=== PATIENT | female | born 1965 | race Caucasian/White ===

== ENCOUNTER 2017-09-22 17:57 | Emergency (ER) | payer OTHER ==
--- NOTE | 2017-09-22 18:50 | EDM.PDOC ---
ED HPI GENERAL MEDICAL PROBLEM - General Chief Complaint: Fever Stated Complaint: PNEUMONIA Time Seen by Provider: 09/22/17 20:00 Source of Information: Reports: Patient History Limitations: Reports: No Limitations - History of Present Illness INITIAL COMMENTS - FREE TEXT/NARRATIVE: Treated @ [facility] today, diagnosed with Pneumonia. CBC showed WBC ct 14k , Temp 104, sent to [facility] for Blood Culture. Patient has had a slight cough and fever for 3 days. Also developed back pain 2 days ago radiating to chest, this has resolved. Denies SOB, recent travel or tick bite. Duration: Day(s): (3) Severity: Moderate Associated Symptoms: Reports: Fever/Chills back Pain Score (Numeric/FACES): 5 - Related Data Allergies Allergy/AdvReac Type Severity Reaction Status Date / Time No Known Allergies Allergy Verified 09/22/17 18:39 Home Meds: Home Meds Levofloxacin [Levaquin] 750 mg PO DAILY 9 Days #9 tab 09/22/17 [Rx] Naproxen Sodium 440 mg PO BID 09/22/17 [History] Past Medical History - Past Health History Medical/Surgical History: Denies Medical/Surgical History Social & Family History - Tobacco Use Smoking Status *Q: Current Every Day Smoker Tobacco Use Within Last Twelve Months: Cigarettes ED ROS GENERAL - Review of Systems Review Of Systems: See Below Constitutional: Reports: Fever HEENT: Reports: No Symptoms Respiratory: Reports: Cough. Denies: Sputum Cardiovascular: Reports: Chest Pain (resolved) Endocrine: Reports: No Symptoms GI/Abdominal: Reports: No Symptoms : Reports: No Symptoms Musculoskeletal: Reports: Back Pain (resolved) Skin: Reports: No Symptoms Neurological: Reports: No Symptoms Psychiatric: Reports: No Symptoms Hematologic/Lymphatic: Reports: No Symptoms Immunologic: Reports: No Symptoms ED EXAM, GENERAL - Physical Exam Exam: See Below Exam Limited By: No Limitations General Appearance: Alert, WD/WN, No Apparent Distress Ears: Normal External Exam Nose: Normal Inspection Throat/Mouth: Normal Inspection Head: Atraumatic Neck: Supple Respiratory/Chest: No Respiratory Distress, Decreased Breath Sounds. No: Crackles, Rales, Wheezing Cardiovascular: Regular Rate, Rhythm, No Gallop, No JVD, No Murmur, No Rub GI/Abdominal: No Distention Extremities: Normal Inspection Neurological: Alert, Oriented Psychiatric: Normal Affect, Normal Mood Skin Exam: Warm, Dry, Intact. No: Rash Course - Vital Signs Last Recorded V/S: Last Vital Signs Temp 36.8 C 09/22/17 18:00 Pulse 71 09/22/17 18:00 Resp 16 09/22/17 18:00 BP 109/59 L 09/22/17 18:00 Pulse Ox 96 09/22/17 18:00 - Orders/Labs/Meds Orders: Active Orders 24 hr Category Date Time Status Chest w Cont [CT] Stat Exams 09/22/17 19:28 Taken CULTURE BLOOD [BC] Urgent Lab 09/22/17 18:55 Received CULTURE BLOOD [BC] Urgent Lab 09/22/17 19:00 Received Levofloxacin [Levaquin] Med 09/22/17 21:05 Once 750 mg PO ONETIME ONE Sodium Chloride 0.9% [Saline Flush] Med 09/22/17 19:29 Active 10 ml FLUSH ASDIRECTED PRN Blood Culture x2 Reflex Set [OM.PC] Urgent Oth 09/22/17 18:45 Ordered Saline Lock Insert [OM.PC] Routine Oth 09/22/17 19:29 Ordered Medication Orders Sodium Chloride (Saline Flush) 10 ml FLUSH ASDIRECTED PRN PRN Reason: Keep Vein Open Labs: Laboratory Tests 09/22/17 09/22/17 09/22/17 Range/Units 18:55 18:55 18:55 D-Dimer, Quantitative 1.83 H (0.0-0.59) mg/LFEU Lactic Acid 1.0 (0.4-2.2) mmol/L Troponin I < 0.017 L (<0.017-0.056) ng/mL Meds: Medications Generic Name Dose Route Start Last Admin Trade Name Freq PRN Reason Stop Dose Admin Sodium Chloride 10 ml 09/22/17 19:29 Saline Flush FLUSH ASDIRECTED PRN Keep Vein Open Discontinued Medications Generic Name Dose Route Start Last Admin Trade Name Freq PRN Reason Stop Dose Admin Iopamidol 100 ml 09/22/17 20:00 09/22/17 20:12 Isovue-370 (76%) IV 09/22/17 20:01 85 ml ONETIME ONE Administration - Radiology Interpretation Free Text/Narrative:: CT Chest w/ IV contrast: No PE, multifocal pneumonia present (per Dr. Mcadams) CT Results Date: 09/22/17 Departure - Departure Time of Disposition: 21:06 Disposition: Home, Self-Care 01 Condition: Good Clinical Impression: Multifocal pneumonia - Discharge Information *PRESCRIPTION DRUG MONITORING PROGRAM REVIEWED*: Not Applicable *COPY OF PRESCRIPTION DRUG MONITORING REPORT IN PATIENT KEVIN: Not Applicable Prescriptions: Levofloxacin [Levaquin] 750 mg PO DAILY 9 Days #9 tab Instructions: Community-Acquired Pneumonia, Adult Referrals: PCP,None [Primary Care Provider] - Forms: ED Department Discharge Additional Instructions: Follow up with your doctor in 2 days. Return to the ER if symptoms worsen. - My Orders Last 24 Hours: My Active Orders 09/22/17 18:45 Blood Culture x2 Reflex Set [OM.PC] Urgent 09/22/17 18:55 CULTURE BLOOD [BC] Urgent 09/22/17 19:00 CULTURE BLOOD [BC] Urgent 09/22/17 19:28 Chest w Cont [CT] Stat 09/22/17 19:29 Sodium Chloride 0.9% [Saline Flush] 10 ml FLUSH ASDIRECTED PRN Saline Lock Insert [OM.PC] Routine 09/22/17 21:05 Levofloxacin [Levaquin] 750 mg PO ONETIME ONE - Assessment/Plan Last 24 Hours: My Active Orders 09/22/17 18:45 Blood Culture x2 Reflex Set [OM.PC] Urgent 09/22/17 18:55 CULTURE BLOOD [BC] Urgent 09/22/17 19:00 CULTURE BLOOD [BC] Urgent 09/22/17 19:28 Chest w Cont [CT] Stat 09/22/17 19:29 Sodium Chloride 0.9% [Saline Flush] 10 ml FLUSH ASDIRECTED PRN Saline Lock Insert [OM.PC] Routine 09/22/17 21:05 Levofloxacin [Levaquin] 750 mg PO ONETIME ONE
[2017-09-22] MEDS ORDERED: Sodium Chloride 0.9% 10 ML Syringe FLUSH PRN (19:29)
[2017-09-22] MEDS ORDERED: Iopamidol 755 Mg/ML 100 ML Bottle IV ONE (20:00)
[2017-09-22] MEDS ORDERED: Levofloxacin 750 MG Tab PO ONE (21:05)
--- NOTE | 2017-09-23 08:29 | CT ---
INDICATION: Chest pain, question pulmonary emboli. COMPUTERIZED TOMOGRAPHY ANGIOGRAPHY OF THE CHEST WITH CONTRAST: Spiral 1.25 mm axial sections were obtained through the chest with sagittal and coronal reconstructions, utilizing 85 mL Isovue 370 at 3 mL/second. Examination was obtained 09/22/2017 - no comparisons were available. Total exam DLP = 413.16 mGy-cm. Extensive infiltration is noted in the left upper lobe, extending into the left hilum with hilar lymphadenopathy and mediastinal lymphadenopathy. Findings likely are on the basis of pneumonia with localized pleuritis and no significant pleural effusion seen. A fairly significant degree of infiltration is also noted in the left lower lobe scattered about the middle portion of the left lower lobe laterally and posteriorly. Infiltration is noted in the left upper lobe anteromedially. Multiple calcified granulomas are scattered about the lungs. Central lobular emphysema is noted. No significant pleural effusion is seen. Much of the infiltration present is subpleural, extending into the lungs bilaterally but is by far more severe in the left upper and lower lobes. No evidence of pulmonary emboli could be identified. IMPRESSION: Extensive pneumonia is suggested with mediastinal and hilar lymphadenopathy on the left and a less prominent degree of pneumonia seen on the right and limited on the right to the upper lobe. On the left, upper and lower lobe infiltration is present. No evidence of pulmonary emboli was seen. Report was called to Dr. Andersen at 2047 hours on 09/22/2017. [facility]
== END 2017-09-22 21:32 | disposition home or self-care (01) ==
LOC: FB.ED 17:57
DX: J18.9 Pneumonia, unspecified organism (principal); F17.210 Nicotine dependence, cigarettes, uncomplicated; Z79.899 Other long term (current) drug therapy
CPT/HCPCS: 36415; 71260; 83605; 84484; 85379; 86666; 87040; 99284; A9270; J7050; Q9967; 87077

== ENCOUNTER 2021-01-01 12:50 | Emergency (ER) | payer OTHER ==
[2021-01-01] MEDS ORDERED: Lidocaine 1% with EPINEPHrine 1:100,000 10 ML MDV INFILT ONE (12:51)
--- NOTE | 2021-01-01 13:28 | EDM.PDOC ---
ED HPI GENERAL MEDICAL PROBLEM - General Chief Complaint: Laceration Stated Complaint: L THUMB LACERATION Time Seen by Provider: 01/01/21 12:55 Source of Information: Reports: Patient History Limitations: Reports: No Limitations - History of Present Illness INITIAL COMMENTS - FREE TEXT/NARRATIVE: Patient presented to the ED because of a laceration at the base of her left thumb. She was taking a shower and a broken piece of tile cut her left thumb. She sustained a 4 cm laceration, she is able to extend and flexe her thumb w/o any difficulty. Left Finger-Thumb Pain Score (Numeric/FACES): 8 - Related Data Allergies Allergy/AdvReac Type Severity Reaction Status Date / Time Penicillins Allergy Airway Verified 03/05/18 16:07 Tightness Home Meds: Home Meds NK [No Known Home Meds] 01/07/18 [History] Past Medical History - Past Health History Medical/Surgical History: Denies Medical/Surgical History Social & Family History - Family History Family Medical History: No Pertinent Family History - Caffeine Use Caffeine Use: Reports: None ED ROS GENERAL - Review of Systems Review Of Systems: See Below Constitutional: Reports: No Symptoms HEENT: Reports: No Symptoms Respiratory: Reports: No Symptoms Cardiovascular: Reports: No Symptoms Endocrine: Reports: No Symptoms GI/Abdominal: Reports: No Symptoms : Reports: No Symptoms Musculoskeletal: Reports: No Symptoms Skin: Reports: Wound Neurological: Reports: No Symptoms Psychiatric: Reports: No Symptoms Hematologic/Lymphatic: Reports: No Symptoms ED EXAM, SKIN/RASH Exam: See Below Exam Limited By: No Limitations General Appearance: Alert, No Apparent Distress Eye Exam: Bilateral Eye: PERRL Ears: Normal External Exam, Normal Canal Nose: Normal Inspection, Normal Mucosa, No Blood Throat/Mouth: Normal Inspection, Normal Lips, Normal Teeth Head: Atraumatic, Normocephalic Neck: Normal Inspection, Supple, Non-Tender, Full Range of Motion Respiratory/Chest: No Respiratory Distress, Lungs Clear, Normal Breath Sounds, No Accessory Muscle Use, Chest Non-Tender Cardiovascular: Normal Peripheral Pulses, Regular Rate, Rhythm, No Edema, No Gallop, No JVD, No Murmur, No Rub GI/Abdominal: Normal Bowel Sounds, Soft, Non-Tender, No Organomegaly, No Distention, No Abnormal Bruit Back Exam: Normal Inspection, Full Range of Motion Extremities: Normal Inspection, Normal Range of Motion, Non-Tender, No Pedal Ed cody, Normal Capillary Refill Neurological: Alert, Oriented, CN II-XII Intact, Normal Reflexes, No Motor/Sensory Deficits ED SKIN PROCEDURES - Laceration/Wound Repair Left Digit - 1st (Thumb) Appearance: Subcutaneous Distal NVT: Neuro & Vascular Intact Anesthetic Type: Local Local Anesthesia - Lidocaine (Xylocaine): 1% with EPI Local Anesthetic Volume: 2cc Skin Prep: Chlorhexidine (Hibiciens) Exploration/Debridement/Repair: Wound Explored Closed with: Sutures Lac/Wound length In cm: 4 Suture Size: 4-0 Suture Type: Nylon Course - Vital Signs Text/Narrative:: UTD with immunization Last Recorded V/S: Last Vital Signs Temp 36.5 C 01/01/21 12:50 Pulse 99 01/01/21 12:50 Resp 20 01/01/21 12:50 BP 132/84 01/01/21 12:50 Pulse Ox 94 L 01/01/21 12:50 Departure - Departure Time of Disposition: 13:30 Disposition: Home, Self-Care 01 Condition: Good Clinical Impression: Laceration - Discharge Information Instructions: Laceration Care, Adult Forms: ED Department Discharge Additional Instructions: Please read discharge instructions on laceration and wound care No need to apply an antibiotic ointment ecause it's a clean wound Do not cover your wound when you are inside the house. Removal of suture in 10 days Sepsis Event Note (ED) - Evaluation Sepsis Screening Result: No Definite Risk - Focused Exam Vital Signs: Vital Signs Temp Pulse Resp BP Pulse Ox 01/01/21 12:50 36.5 C 99 20 132/84 94 L
== END 2021-01-01 13:34 | disposition home or self-care (01) ==
LOC: FB.ED 12:50
DX: S61.012A Laceration without foreign body of left thumb without damage to nail, initial encounter (principal); Z88.0 Allergy status to penicillin; W26.8XXA Contact with other sharp object(s), not elsewhere classified, initial encounter
CPT/HCPCS: 12002; 99282-25